=== PATIENT | female | born 1945 | race Caucasian/White ===

== ENCOUNTER → 2024-12-26 07:18 | Outpatient (REF) | payer MEDICARE, SELFPAY | LOC: HWWDC 07:18 | PROVIDERS: ATTENDING PHYSICIAN Internal Medicine | DX: Z12.31 Encounter for screening mammogram for malignant neoplasm of breast (principal) | CPT/HCPCS: 77063; 77067 ==

== ENCOUNTER → 2025-01-02 08:39 | Outpatient (REF) | payer MEDICARE, SELFPAY | LOC: WDC 08:39 | PROVIDERS: ATTENDING PHYSICIAN Internal Medicine | DX: R92.8 Other abnormal and inconclusive findings on diagnostic imaging of breast (principal) | CPT/HCPCS: 76642 ==